=== PATIENT | male | born 1945 | race Hispanic/Latino ===

== ENCOUNTER → 2022-01-24 | Outpatient (CLI) | payer OTHER | END | disposition home or self-care (01) | LOC: RAH 14:44 | PROVIDERS: ATTEND Internal Medicine | DX: J44.9 Chronic obstructive pulmonary disease, unspecified (principal); Z12.2 Encounter for screening for malignant neoplasm of respiratory organs; K80.20 Calculus of gallbladder without cholecystitis without obstruction | CPT/HCPCS: 71250 ==

== ENCOUNTER → 2025-03-14 | Outpatient (CLI) | payer OTHER ==
--- NOTE | 2025-03-14 18:40 | HMCIMG ---
EXAM: CT Chest Without Intravenous Contrast. CLINICAL HISTORY: 79-year-old male with abnormal findings on diagnostic imaging of other specified body structures. TECHNIQUE: Axial computed tomography images of the chest without intravenous contrast. Dose reduction technique was used including one or more of the following: automated exposure control, adjustment of mA and kV according to patient size, and/or iterative reconstruction. CONTRAST: NONE COMPARISON: CT Chest W/O Contrast from 01/24/2022 at 3:35 PM. FINDINGS: LUNGS: Multiple areas of bronchiectasis in the upper lobes and right middle lobe are visible. Bronchiectasis of the lower lobe is also seen. PLEURAL SPACES: No pleural effusion. No pneumothorax. HEART AND MEDIASTINUM: Atherosclerotic coronary arteries have been noted. No cardiomegaly. No significant pericardial effusion. LYMPH NODES: Mediastinal bilateral lymph nodes are present. CHEST WALL AND UPPER ABDOMEN: Multiple gallstones are seen. The chest wall is unremarkable. BONES: Mildly sclerotic changes in the thoracic spine are noted. No acute osseous abnormality. IMPRESSION: 1. Multiple areas of bronchiectasis in the upper lobes, right middle lobe, and lower lobe, similar to prior CT Chest W/O Contrast from 01/24/2022 at 3:35 PM. 2. Mediastinal bilateral lymph nodes. 3. Multiple gallstones. /[place]
== END | disposition home or self-care (01) ==
LOC: RAH 13:25
PROVIDERS: ATTEND Internal Medicine
DX: J47.9 Bronchiectasis, uncomplicated (principal); K80.20 Calculus of gallbladder without cholecystitis without obstruction; I25.10 Atherosclerotic heart disease of native coronary artery without angina pectoris; G95.89 Other specified diseases of spinal cord; R93.89 Abnormal findings on diagnostic imaging of other specified body structures
CPT/HCPCS: 71250

== ENCOUNTER → 2025-04-14 | Outpatient (CLI) | payer OTHER ==
[~2025-04-14] MED LIST: IOHEXOL-350 75 ML VIAL IV ONE
--- NOTE | 2025-04-14 13:17 | HMCIMG ---
EXAM: CT CHEST WITH AND WITHOUT INTRAVENOUS CONTRAST Technique: Helical computed tomography of the chest obtained before and after intravenous contrast with thin-section axial images and coronal/sagittal reformations; dose reduction per ALARA. CTDIvol 23.20 mGy; DLP 821.00 mGy???cm. Contrast: Standard dose of intravenous contrast administered. Clinical Information: Localized enlarged lymph nodes; shortness of breath. Comparison: CT chest without contrast dated 03/14/2025 14:20 EDT. Findings: Soft tissues: No subcutaneous emphysema or focal soft-tissue mass identified. Lungs and large airways: Bronchiectasis in the upper lobes and right middle lobe with additional bronchiectatic change in the lower lobes; tracheobronchial tree patent. Pleura: No pleural effusion and no pneumothorax. Heart and pericardium: No cardiomegaly and no pericardial effusion; coronary artery atherosclerosis is present. Aorta: Thoracic aorta normal in course and caliber. Pulmonary arteries: No filling defect to suggest pulmonary embolism. Lymph nodes: Mediastinal lymph nodes are present bilaterally without a dominant mass. Mediastinum and jose: No mediastinal mass identified. Chest wall and lower neck: No focal abnormality identified. Bones/joints: Mild sclerotic/degenerative changes in the thoracic spine without acute osseous abnormality. Upper abdomen: Multiple gallstones are present in the gallbladder; otherwise visualized upper abdomen unremarkable. Impression: * Bronchiectasis involving the upper lobes, right middle lobe, and lower lobes; correlate clinically for chronic airway disease or prior infections. * No pleural effusion, pneumothorax, or pulmonary embolism. * Coronary artery atherosclerosis. * Cholelithiasis. * Mediastinal lymph nodes present without a dominant mass; correlate with clinical context for reactive etiology. * Compared with the CT chest of 03/14/2025 14:20 EDT, the appearance is stable. /[place]
--- NOTE | 2025-04-14 13:35 | HMCIMG ---
EXAM: CT PELVIS WITH AND WITHOUT INTRAVENOUS CONTRAST Technique: Multidetector helical acquisition of the pelvis with thin axial images and coronal/sagittal reformations; non-contrast and post-contrast phases performed; dose reduction per ALARA. CTDIvol 23.20 mGy; DLP 821.00 mGy???cm. Contrast: Standard dose of intravenous contrast administered. Clinical Information: Localized enlarged lymph nodes; shortness of breath (patient comment). Comparison: None Findings: Pelvic organs: Prostate gland is enlarged (exact dimensions not provided). Urinary bladder contour preserved without focal mural thickening identified on this exam. Lymph nodes: No pathologic pelvic lymphadenopathy is identified. Vasculature/retroperitoneum: Moderate atherosclerotic calcifications of the abdominal aorta and bilateral iliac arteries; vessels normal in caliber. Bowel: Visualized pelvic bowel loops are normal in caliber without wall thickening or pericolonic inflammation. Hernias/abdominal wall: Small fat-containing right inguinal hernia. Upper abdomen (visualized): Multiple tiny gallbladder calculi (cholelithiasis). Visualized liver and kidneys are unremarkable. Bones/joints: No acute osseous abnormality. IMPRESSION: 1. Prostatomegaly; clinical correlation with prostate-specific antigen level and lower urinary tract symptoms recommended. Urology follow-up as indicated. 2. Small fat-containing right inguinal hernia. Consider surgical consultation if symptomatic or enlarging. 3. Moderate atherosclerotic calcifications of the abdominal aorta and bilateral iliac arteries; vessels normal in caliber. 4. Incidental cholelithiasis. Correlate with right upper quadrant symptoms. 5. No pathologic pelvic lymphadenopathy identified to correspond with the clinical history of "localized enlarged lymph nodes." 6. Urinary bladder contour preserved without focal mural thickening. 7. Visualized pelvic bowel loops are normal in caliber without wall thickening or pericolonic inflammation. 8. No acute osseous abnormality. /[place]
== END | disposition home or self-care (01) ==
LOC: RAH 10:25
PROVIDERS: ATTEND Internal Medicine
DX: N40.0 Benign prostatic hyperplasia without lower urinary tract symptoms (principal); K40.90 Unilateral inguinal hernia, without obstruction or gangrene, not specified as recurrent; I70.0 Atherosclerosis of aorta; K80.20 Calculus of gallbladder without cholecystitis without obstruction; J47.9 Bronchiectasis, uncomplicated; R59.0 Localized enlarged lymph nodes; I25.10 Atherosclerotic heart disease of native coronary artery without angina pectoris; M47.817 Spondylosis without myelopathy or radiculopathy, lumbosacral region
CPT/HCPCS: 71270; 72194; Q9967